=== PATIENT | female | born 1985 | race Two or more races ===

== ENCOUNTER 2023-05-19 17:28 | Inpatient (IN) | payer OTHER ==
[~2023-05-19] VITALS: Ht 167.6 cm; Wt 90.7 kg
--- NOTE | 2023-05-19 17:58 | NUR ---
PACIENTE ALERTA Y ORIENTADA X3, REFEIRE TENER DOLOR ABDOMINAL Y NAUSEAS. SE MONITOREAN VS Y SE UBICA
--- NOTE | 2023-05-19 18:25 | NUR ---
PTE EVALUADOPOR QUIEN ORDENA TX MED A PTE SOBRE EL MIMSO Y REFIERE ENTENDER. SE REALIZA ORDENES BAJO MEDIDAS ACEPTICAS. PTE PEND A RESULTADOS DE LAB Y REALIZACION DE CT.
[2023-05-19 18:43] LABS: PH,URINE 7.5 (5.0-8.0); URINE APPEARANCE Clear; URINE BILIRRUBIN Negative (NEGATIVE); URINE BLOOD NHT; URINE COLOR Yellow; URINE GLUCOSE Negative (NEGATIVE); URINE LEUKOCYTE Negative; URINE NITRATE Negative; URINE PROTEIN Negative (NEGATIVE); URINE UROBILINOGEN 0.2 E.U./dl
[2023-05-19 18:46] LABS: URINE EPITHELIAL CELLS 20.4 uL (0.0-38.8); URINE RBC 31.9 uL (0.0-20.8); URINE WBC 14.2 uL (0.0-23.2)
[2023-05-19 18:47] LABS: HEMATOCRIT 41.2 % (36.0-45.00); HEMOGLOBIN 13.4 g/dL (12.0-15.00); MEAN CELL VOLUME 90.2 fL (80.00-100.00); MEAN CORPUSCULAR HEMOGLOBIN 29.2 pg (27.00-32.0); MEAN CORPUSCULAR HGB CONC 32.4 g/dl (32.0-36.0); PLATELET COUNT 346 K/uL (150-450); RED BLOOD COUNT 4.57 M/uL (4.00-6.00); RED CELL DISTRIBUTION WIDTH 13.6 % (11.5-14.5)
[2023-05-19 18:56] LABS: INR 0.97; PROTHROMBIN TIME 10.2 SECONDS (9.0-11.5)
[2023-05-19 19:03] LABS: ANION GAP 8 (10.0-20.0); BLOOD UREA NITROGEN 12 mg/dL (7-18); BUN CREA RATIO 17 (7.0-25.0); CALCIUM 9.2 mg/dL (8.5-10.1); CARBON DIOXIDE 29 mEq/L (21-32); CHLORIDE 103 mmol/L (98-107); CREATININE SERUM 0.72 mg/dL (0.55-1.02); GFR 91.65; GLUCOSE FASTING 136 mg/dL (65-100); OSMOLALITY SERUM 274 MOSM/KG (275-295); POTASSIUM 3.81 mEq/L (3.5-5.1); SODIUM 136 mmol/L (136-145)
[2023-05-19 19:06] LABS: HCG QUANTITATIVE < 1 mUI/mL (1-3)
== END 2023-05-22 16:08 | disposition home or self-care (01) | DRG 399 ==
LOC: ER 17:28 → SURH 22:33
PROVIDERS: General Practice; Surgery; ADMIT Internal Medicine; ATTEND Internal Medicine
PROC: BW21YZZ Computerized Tomography (CT Scan) of Abdomen and Pelvis using Other Contrast (ICD-10-PCS; 2023-05-19)
PROC: 0DTJ4ZZ Resection of Appendix, Percutaneous Endoscopic Approach (ICD-10-PCS; principal; 2023-05-20 17:00)
DX: K35.890 Other acute appendicitis without perforation or gangrene (principal); D72.829 Elevated white blood cell count, unspecified